=== PATIENT | male | born 1955 ===

== ENCOUNTER 2017-08-14 07:26 | Day surgery (SDC) | payer MEDICAID ==
[2017-08-14 08:09] VITALS: BMI 27.9
[2017-08-14] MEDS ORDERED: Albuterol HFA 90 mcg/actuation (8 g) ONE (08:40)
[2017-08-14] MEDS ORDERED: Propofol 10 mg/ml Inj (20 ML) ONE (09:45)
[2017-08-14 10:48] VITALS: O2SAT 97
[2017-08-14 11:04] VITALS: TEMP 98.2
[2017-08-14 12:31] VITALS: BP 99/72; PULSE 63; RESP 15
== END 2017-08-14 11:20 | disposition home or self-care (01) ==
LOC: C.ENDO 07:26
PROVIDERS: ATTEND Internal Medicine Gastroenterology
DX: D12.4 Benign neoplasm of descending colon (principal); K29.50 Unspecified chronic gastritis without bleeding; K62.1 Rectal polyp; B96.81 Helicobacter pylori [H. pylori] as the cause of diseases classified elsewhere; K64.8 Other hemorrhoids
CPT/HCPCS: 43239; 45388; 82948; 88305; J2704; J3010

== ENCOUNTER 2018-08-07 11:24 | Emergency (ER) | payer MEDICAID ==
[2018-08-07 11:30] VITALS: BMI 28.5
[2018-08-07 11:33] VITALS: TEMP 98.2
--- NOTE | 2018-08-07 11:44 | C.PDOC ---
History Of Present Illness 62 y/o male presents to the ED complaining of new-onset right first toe pain and foot pain that began in the middle of the night. No trauma. Patient has PMHx of diabetes. Initially pain was localized to the top of mid-foot. Now complaining of new-onset redness and swelling to the distal right first toe. No fever or chills. Time Seen by Provider: 08/07/18 11:41 Chief Complaint (Nursing): Lower Extremity Problem/Injury History Per: Patient History/Exam Limitations: no limitations Onset/Duration Of Symptoms: Hrs Current Symptoms Are (Timing): Still Present Past Medical History Reviewed: Historical Data, Nursing Documentation, Vital Signs Vital Signs: Last Vital Signs Temp 98.2 F 08/07/18 11:30 Pulse 67 08/07/18 11:30 Resp 20 08/07/18 11:30 BP 122/80 08/07/18 11:30 Pulse Ox 98 08/07/18 11:30 - Medical History PMH: Anxiety, Arthritis, Asthma, Depression, Diabetes, Deep Vein Thrombosis (To the RLE, not on blood thinners), HTN, Hypercholesterolemia, Hypothyroidism, Kidney Stones, Chronic Kidney Disease, Chronic Pain (back ) Surgical History: Appendectomy, Endoscopy - [facility] Procedures INJECT/INFUSE NEC (09/28/13) TETANUS TOXOID ADMINIST (02/22/14) Family History: States: Unknown Family Hx - Social History Hx Tobacco Use: No Hx Alcohol Use: No Hx Substance Use: No - Immunization History Hx Tetanus Toxoid Vaccination: No Hx Influenza Vaccination: Yes Hx Pneumococcal Vaccination: No Review Of Systems Except As Marked, All Systems Reviewed And Found Negative. Constitutional: Negative for: Fever, Chills Musculoskeletal: Positive for: Foot Pain, Other (Right first toe pain) Skin: Positive for: Other (Right first toe swelling/redness) Neurological: Negative for: Weakness, Numbness, Incoordination Physical Exam - Physical Exam Appears: Non-toxic, No Acute Distress Skin: Warm, Dry, Rash (Cellulitis at the distal right 1st toe, over the nail bed and inner aspect; skin intact, no lesions) Head: Atraumatic, Normacephalic Eye(s): bilateral: Normal Inspection, PERRL, EOMI Neck: Normal ROM Chest: Symmetrical Cardiovascular: Rhythm Regular, No Murmur Respiratory: Normal Breath Sounds, No Accessory Muscle Use, Other (NARD) Gastrointestinal/Abdominal: Soft, No Tenderness, No Distention Extremity: Right: Other (Mild swelling to the distal 1st toe, no paronychia, chronic fungal nail infections bilaterally), Bilateral: Atraumatic Pulses: Left Dorsalis Pedis: Normal, Right Dorsalis Pedis: Normal Neurological/Psych: Oriented x3, Normal Speech, Other (No focal deficits) ED Course And Treatment O2 Sat by Pulse Oximetry: 98 (RA) Pulse Ox Interpretation: Normal - Other Rad R FOOT X-Ray: Interpreted by Me (neg) r toe X-Ray: Interpreted by Me (NEG) Reevaluation Time: 12:57 Reassessment Condition: Improved (AREA DEMARCATED, CAST SHOE APPLIED FOR COMFORT) - Physician Consult Information Time Consulting Physician Contacted: 12:59 Physician Contacted: Gokul Boyer Outcome Of Conversation: AWARE OF ER FINDINGS WILL FU OFFICE Medical Decision Making Medical Decision Making: Impression: Right great toe cellulitis Plan: --Right foot x-ray --Right toe x-ray --Toradol 60 mg IM --Augmentin 1 tab PO Disposition Counseled Patient/Family Regarding: Studies Performed, Diagnosis, Need For Followup, Rx Given - Disposition Referrals: Gokul Boyer MD [Staff Provider] - Disposition: HOME/ ROUTINE Disposition Time: 12:59 Condition: IMPROVED Prescriptions: Amoxicillin/Clavulanate [Augmentin 875 MG-125 MG] 1 tab PO BID #14 tab Ibuprofen [Motrin] 600 mg PO Q6 #30 tab Instructions: Cellulitis (Skin Infection), Adult (DC) Forms: [employer] (Sami) Print Language: GERMAN - Clinical Impression Clinical Impression: Cellulitis - Scribe Statement The provider has reviewed the documentation as recorded by the Angleibreginaldo Landis Provider Attestation: All medical record entries made by the Angleibreginaldo were at my direction and personally dictated by me. I have reviewed the chart and agree that the record accurately reflects my personal performance of the history, physical exam, medic al decision making, and the department course for this patient. I have also personally directed, reviewed, and agree with the discharge instructions and disposition.
[2018-08-07] MEDS ORDERED: Amoxicillin-Clav 875-125 mg Tab PO STA (11:47)
[2018-08-07] MEDS ORDERED: Amoxicillin-Clav 875-125 mg Tab PO ONE (11:54)
[2018-08-07 12:17] VITALS: BP 112/71; PULSE 77; RESP 18
[2018-08-07 13:00] VITALS: O2SAT 98
--- NOTE | 2018-08-07 13:08 | RAD ---
PROCEDURE: Radiographs of the right great toe. TECHNIQUE:: AP radiograph of the right foot, with oblique and lateral view of the right great toe. COMPARISON: None. FINDINGS: BONES: Bone alignment and mineralization are normal. There is no acute displaced fracture or bone destruction. JOINTS: Normal. SOFT TISSUES: Normal. OTHER FINDINGS: There are atherosclerotic vascular calcifications. IMPRESSION: No acute fracture or dislocation.
--- NOTE | 2018-08-07 13:14 | RAD ---
Date of service: 08/07/2018 PROCEDURE: Right Foot Radiographs. HISTORY: Pain COMPARISON: None. FINDINGS: BONES: Bone alignment and mineralization are normal. There is no acute displaced fracture or bone destruction. There is a small plantar calcaneal spur. JOINTS: Normal. SOFT TISSUES: Normal. OTHER FINDINGS: Atherosclerotic vascular calcifications are present.. IMPRESSION: No acute fracture or dislocation.
== END 2018-08-07 13:04 | disposition home or self-care (01) ==
LOC: C.ER 11:24
DX: L03.031 Cellulitis of right toe (principal)
CPT/HCPCS: 73630; 73660; 82948; 96372; 99285; J1885